=== PATIENT | male | born 1940 | race Hispanic/Latino ===

== ENCOUNTER 2017-07-30 09:23 | Outpatient (CLI) | payer MEDICARE, OTHER ==
--- NOTE | 2017-07-30 10:13 | XRay Report ---
CHEST WITH LEFT RIB DETAIL FOUR VIEWS: 07/30/17 09:23:00 CLINICAL: Chest wall pain. FINDINGS: A mildly displaced transverse fracture of the left ninth posterior rib with no callous and mild deformity of the left anterior third rib with no fracture line identified. No underlying bone lesions.The lungs are normally expanded and clear. No pneumothorax. Normal heart and pulmonary vasculature the lungs are clear. Normal soft tissues. IMPRESSION: An acute/subacute traumatic fracture of the left ninth rib. Deformity of the left anterior third rib probably represents an old healed fracture. No pneumothorax.
== END 2017-07-30 09:24 | disposition home or self-care (01) ==
LOC: SPVIMAG 09:23
PROVIDERS: ATTEND Nurse Practitioner
DX: S22.32XA Fracture of one rib, left side, initial encounter for closed fracture (principal); S22.32XD Fracture of one rib, left side, subsequent encounter for fracture with routine healing; X58.XXXA Exposure to other specified factors, initial encounter; X58.XXXD Exposure to other specified factors, subsequent encounter; Y93.89 Activity, other specified; Y92.89 Other specified places as the place of occurrence of the external cause; Y99.9 Unspecified external cause status